=== PATIENT | female | born 1980 | race Caucasian/White ===

== ENCOUNTER 2018-06-03 12:26 | Day surgery (SDC) | payer OTHER ==
[~2018-06-03] VITALS: Ht 172.7 cm; Wt 83.2 kg
[~2018-06-03 12:26] MED LIST: LEVO25TA6 PO
[2018-06-03] MEDS ORDERED: levothyroxine (13:39)
[2018-06-03] MEDS ORDERED: ranitidine (13:39)
[2018-06-03] MEDS ORDERED: prozac (13:39)
[2018-06-03 13:41] VITALS: Ht 172.7 cm; Wt 83.2 kg
--- NOTE | 2018-06-03 15:19 | PREAC ---
Date/Time of Note Date/Time of Note DATE: 06/03/18 TIME: 15:18 Anesthesia Eval and Record Evaluation Time Pre-Procedure Interview DATE: 06/03/18 TIME: 15:18 Age 38 Sex female NPO: 8 hrs Preoperative diagnosis abd pain Planned procedure egd Past Medical History Past Medical History: Includes Endo: Hypothyroid Surgery & Anesthesia Issues No known issue Meds Anticoagulation: No Beta Em within 24 hr: No Reason Beta Em not given: Pt. not on B-Em Reported Medications [ranitidine] No Conflict Check 06/03/18 [levothyroxine] No Conflict Check 06/03/18 [prozac] No Conflict Check 06/03/18 Levothyroxine Sodium* (Levothyroxine Sodium*) 25 Mcg Tablet, 25 MCG PO DAILY 11/21/10 Meds reviewed: Yes Allergies Coded Allergies: Penicillins (Verified Allergy, Intermediate, UNKNOWN; HAPPENED WHEN PT WAS A CHILD, 11/21/10) Allergies Reviewed: Yes Labs/Studies Labs Reviewed: Reviewed by anesthesiologist test: Negative Pre-procedure Exam Airway: Adequate mouth opening, Adequate thyromental dist Mallampati: Mallampati II Teeth: Normal Lung: Normal Heart: Normal ASA Physical Status ASA physical status: 2 Emergency: None Planned Anesthetic General/MAC: Mask, MAC Pre-operative Attestations Prior to commencing anesthesia and surgery, the patient was re-evaluated, there was verification of: *The patient's identity *The results of appropriate recent lab work and preoperative vital signs *The above evaluation not changing prior to induction *Anesthetic plan, risk benefits, alternative and complications discussed with patient/family; questions answered; patient/family understands, accepts and wishes to proceed. DYLAN RONQUILLO Jun 03, 2018 15:19
[2018-06-03 15:26] VITALS: BP 112/62; PULSE 83; RESP 18
--- NOTE | 2018-06-03 15:37 | HPN ---
Date/Time of Note Date/Time of Note DATE: 06/03/18 TIME: 15:37 Interval H&P Admission Note Pt. seen H&P reviewed: No system changes AMMY GAUTHIER Jun 03, 2018 15:37
[2018-06-03 15:45] VITALS: BP 105/59; PULSE 77; RESP 18
[2018-06-03 16:00] VITALS: BP 118/64; PULSE 84; RESP 18
--- NOTE | 2018-06-03 18:59 | PAC ---
Date/Time of Note Date/Time of Note DATE: 06/03/18 TIME: 18:59 Post-Anesthesia Notes Post-Anesthesia Note Last documented vital signs Vital Signs Date Temp Pulse Resp B/P (MAP) Pulse Ox O2 O2 Flow FiO2 Time Delivery Rate 06/03/18 84 18 118/64 99 Room Air 16:00 (82) 06/03/18 98.0 15:45 Activity: WNL Respiratory function: WNL Cardiovascular function: WNL Mental status: Baseline Pain reasonably controlled: Yes Hydration appropriate: Yes Nausea/Vomiting absent: Yes DYLAN RONQUILLO Jun 03, 2018 18:59
== END 2018-06-03 16:16 | disposition home or self-care (01) ==
LOC: GIL 12:26
PROVIDERS: ATTEND Internal Medicine Gastroenterology
DX: K29.50 Unspecified chronic gastritis without bleeding (principal); E03.9 Hypothyroidism, unspecified
CPT/HCPCS: 43239; 88305; 88312; Z7610